=== PATIENT | female | born 1995 | race Caucasian/White ===

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

== ENCOUNTER 2018-09-05 19:00 | Emergency (ER) | payer SELFPAY ==
[~2018-09-05] VITALS: Ht 160 cm; Wt 103.9 kg
[~2018-09-05 19:00] MED LIST: CEPH-443 PO; PHEN-538 PO
[2018-09-05 19:06] VITALS: BP 137/73; PULSE 103; RESP 24; Ht 160 cm; Wt 103.9 kg
[2018-09-05] MEDS ORDERED: IBUP-1542 PO (22:57)
--- NOTE | 2018-09-05 23:04 | ERD ---
ER Documentation Chief Complaint Chief Complaint PT reports a weight fell on her R foot HPI This is a Lebanese-speaking 22-year-old female presents to the ED with right foot pain status post a 90 pound weight falling onto it yesterday while at work. Patient states pain is mostly localized to her right midfoot. She also endorses subjective numbness to her plantar foot. She has full range of motion of her ankle and of her toes. She sustained a small bruise to her right midfoot. She is able to ambulate with limping. No other injuries reported. No other complaints. ROS All systems reviewed and are negative except as per history of present illness. Medications Home Meds Active Scripts Ibuprofen* (Motrin*) 600 Mg Tab, 600 MG PO Q6H PRN for PAIN AND OR ELEVATED TEM P, #30 TAB Prov:CHRISTY HALL PA-C 09/05/18 Cephalexin* (Keflex*) 500 Mg Capsule, 500 MG PO BID for 7 Days, CAP Prov:YARELY CORONA PA-C 09/10/16 Phenazopyridine Hcl* (Pyridium*) 200 Mg Tab, 200 MG PO TID PRN for URINARY PAIN, #6 TAB Prov:YARELY CORONA PA-C 09/10/16 Allergies Allergies: Coded Allergies: No Known Allergy (Unverified , 09/10/16) PMhx/Soc History of Surgery: No Anesthesia Reaction: No Hx Neurological Disorder: No Hx Respiratory Disorders: No Hx Cardiac Disorders: No Hx Psychiatric Problems: No Hx Miscellaneous Medical Probl: No Hx Alcohol Use: No Hx Substance Use: No Hx Tobacco Use: No Smoking Status: Never smoker Physical Exam Vitals Vital Signs Date Temp Pulse Resp B/P (MAP) Pulse Ox O2 O2 Flow FiO2 Time Delivery Rate 09/05/18 99.0 103 24 137/73 98 19:06 (94) Physical Exam Const: No acute distress Head: Atraumatic Eyes: Normal Conjunctiva ENT: Normal External Ears, Nose and Mouth. Neck: Full range of motion. No meningismus. Abd: Soft, non tender, non distended. Normal bowel sounds Skin: No petechiae or rashes Back: No midline or flank tenderness Lower Extremity - bilateral: Skin: + Ecchymosis to the right midfoot. No laceration or abrasion. Compartments: Soft Motor: Full active range of motion hip/knee/ankle/foot Sensation: Intact to light touch FDWS/MF/LF/P surfaces. Bones: + Moderate tenderness to palpation of the right midfoot with soft tissue swelling. Nontender proximal tibia/ malleoli Joints: No effusion or laxity Pulses/Perfusion: 2+ DP, Capillary refill < 2 seconds Neur: Awake and alert Psych: Normal Mood and Affect Procedures/MDM LABS & DIAGNOSTIC IMAGING: PROCEDURE: XR Foot. CLINICAL INDICATION: pain TECHNIQUE: AP, lateral and oblique views of the right foot was obtained. The images were reviewed on a PACS workstation. COMPARISON: None. FINDINGS: The bones of the foot appear intact, with no evidence of acute fracture, dislocation, or subluxation. The joint spaces are preserved. Bone mineralization is normal. There is soft tissue swelling in the dorsum of the right foot. RPTAT: AA IMPRESSION: Soft tissue swelling with no acute fracture. PROCEDURES: Splint Assessment: Neurovascularly intact post splint placement with good fit. MEDICAL DECISION MAKING: This is a 22-year-old female presents with right foot pain status post heavy ob ject falling onto it while at work earlier today. Patient is neurovascular intact. X-ray as above is negative for any acute fracture dislocation. I discussed with patient at bedside. I discussed that there is a chance that the x-ray could have missed an occult fracture. I recommended repeat imaging in 1 week if symptoms continue. She is placed in the Jeronimo wrap, given crutches for comfort. Recommended ice for the next 48 hours. She can follow-up with her regular doctor in 2 days, otherwise return here for any new or worsening symptoms. No evidence of compartment syndrome, neurologic injury, vascular injury, open joint, open fracture, tendon laceration, or foreign body. PRESCRIPTIONS: Ibuprofen SPECIALIST FOLLOW UP RECOMMENDED: None Patient has been advised to follow up with primary care in 1-2 days. Blood Pressure Assessment: Patient's blood pressure was elevated (>120/80) but appears stable without evidence of hypertension emergency or urgency. The patient was counseled about the risks of hypertension and urged to pursue outpatient monitoring and therapy within a week with their primary care physician. Departure Diagnosis: Primary Impression: Injury of foot Encounter type: initial encounter Laterality: right Qualified Codes: S99.921A - Unspecified injury of right foot, initial encounter Additional Impression: Foot contusion Encounter type: initial encounter Laterality: right Qualified Codes: S90.31XA - Contusion of right foot, initial encounter Condition: Stable Patient Instructions: Contusion, Foot Referrals: [facility] YOU HAVE RECEIVED A MEDICAL SCREENING EXAM AND THE RESULTS INDICATE THAT YOU DO NOT HAVE A CONDITION THAT REQUIRES URGENT TREATMENT IN THE EMERGENCY DEPARTMENT. FURTHER EVALUATION AND TREATMENT OF YOUR CONDITION CAN WAIT UNTIL YOU ARE SEEN IN YOUR DOCTORS OFFICE WITHIN THE NEXT 1-2 DAYS. IT IS YOUR RESPONSIBILITY TO MAKE AN APPOINTMENT FOR FOLOW-UP CARE. IF YOU HAVE A PRIMARY DOCTOR --you should call your primary doctor and schedule an appointment IF YOU DO NOT HAVE A PRIMARY DOCTOR YOU CAN CALL OUR PHYSICIAN REFERRAL HOTLINE AT IF YOU CAN NOT AFFORD TO SEE A PHYSICIAN YOU CAN CHOSE FROM THE FOLLOWING [facility] [address] [facility]. [facility] [address] [facility]. [facility] [address] [facility] [address] [facility] [address] [facility]. [facility] [address] [facility]. [facility] YOU HAVE RECEIVED A MEDICAL SCREENING EXAM AND THE RESULTS INDICATE THAT YOU DO NOT HAVE A CONDITION THAT REQUIRES URGENT TREATMENT IN THE EMERGENCY DEPARTMENT. FURTHER EVALUATION AND TREATMENT OF YOUR CONDITION CAN WAIT UNTIL YOU ARE SEEN IN YOUR DOCTORS OFFICE WITHIN THE NEXT 1-2 DAYS. IT IS YOUR RESPONSIBILITY TO MAKE AN APPOINTMENT FOR FOLOW-UP CARE. IF YOU HAVE A PRIMARY DOCTOR --you should call your primary doctor and schedule and appointment IF YOU DO NOT HAVE A PRIMARY DOCTOR YOU CAN CALL OUR PHYSICIAN REFERRAL HOTLINE AT . IF YOU CAN NOT AFFORD TO SEE A PHYSICIAN YOU CAN CHOSE FROM THE FOLLOWING [facility]: [facility] [address] [place] [address] [facility] [address] [place] [address] [facility] + [facility] [address] [place] [address] [facility] URGENT CARE/SPECIALTIES Additional Instructions: Paciente aconseja volver a Departamento de urgencias inmediatamente para sntomas nuevos o que empeoran . Paciente aconseja posteriores con el PCP en 1-2 espinoza. Si el paciente no tiene ninguna de atencin primaria pueden seguir con [facility] [address] [place] [address] o [facility] + [address] [address] CHRISTY HALL PA-C Sep 05, 2018 23:04
== END 2018-09-05 23:12 | disposition home or self-care (01) ==
LOC: FTE 19:00
DX: S90.31XA Contusion of right foot, initial encounter (principal); W20.8XXA Other cause of strike by thrown, projected or falling object, initial encounter; Y92.89 Other specified places as the place of occurrence of the external cause
CPT/HCPCS: 73630